=== PATIENT | male | born 1950 | race Caucasian/White ===

== ENCOUNTER 2017-04-16 05:54 | Day surgery (SDC) | payer BC ==
[2017-04-16] MEDS ORDERED: Midazolam HCl 2 mg/2 ml Vial ONE ×2 (06:27→06:51)
[2017-04-16] MEDS ORDERED: Fentanyl 100 MCG/2 ML VIAL ONE ×2 (06:27→09:07)
[2017-04-16 06:31] LABS: #Eosinphils 0.3 thou/uL (0.0-0.7); #Lymphocytes 1.6 thou/uL (1.20-3.40); #Monocytes 0.6 thou/uL (0.11-0.59); #Neutrophils 3.1 thou/uL (1.40-6.50); %Basophils 0.7 % (0.0-1.0); %Eosinophils 4.6 % (0.0-10.0); %Lymphocytes 28.7 % (21.0-51.0); %Monocytes 10.7 % (0.0-10.0); Mean Platelet Volume 6.4 fL (7.4-10.4); Red Blood Cell (RBC) Count 4.34 mill/uL (4.70-6.10); White Blood Cell (WBC) Count 5.6 thou/uL (4.8-10.8)
[2017-04-16] MEDS ORDERED: Bupivacaine/Epinephrine 0.25% 30 ML VIAL ONE (06:44)
[2017-04-16 06:51] LABS: ALT (SGPT) 33 U/L (8-55); AST (SGOT) 23 U/L (5-34); Alkaline Phosphatase 89 U/L (40-150); Anion Gap 12 mmol/L (10-20); BUN (Urea Nitrogen) 13 mg/dL (8.4-25.7); Bilirubin, Total 0.8 mg/dL (0.2-1.2); Calc. Creatinine Clearance 0 mL/min (70-130); Calcium 9.3 mg/dL (7.8-10.44); Carbon Dioxide 28 mmol/L (23-31); Chloride 104 mmol/L (98-107); Estimated GFR-MDRD Greater than 90; Globulin 2.8 g/dL (2.4-3.5); Protein, Total 6.9 g/dL (5.8-8.1)
[2017-04-16] MEDS ORDERED: CEFAZOLIN/Water 2 GM/20 ML SYRINGE ONE (06:51)
--- NOTE | 2017-04-16 09:02 | OP ---
PREOPERATIVE DIAGNOSES: Umbilical hernia and right breast mass. SURGEON: Jamari Morales M.D. PROCEDURE PERFORMED: Umbilical hernia repair with mesh, right breast biopsy. INDICATIONS: A 67-year-old male who presented with an enlarging mass of the right subareolar breast as well as an enlarging umbilical hernia causing discomfort. FINDINGS: He had about 4 x 4 cm of omental fat incarcerated in this umbilical hernia. The actual de fect was only about 1.5 cm. The breast mass turned out to be what appears to be gynecomastia. PROCEDURE IN DETAIL: After informed consent was obtained, the patient was taken to the operating jordy m and given general mask anesthesia, placed in the supine position. Abdomen and chest were prepped a nd draped in the usual fashion. Local anesthesia infiltrated subcutaneously and deep. A subumbilica l incision was performed. The umbilical skin was dissected off the hernia sac. The hernia sac then dissected circumferentially down to the fascia. Hernia sac excised. Due to the large amount of fatt y tissue going through the small hole, I could not get it to reduce. So it was divided between clamp s and tied with a 0 silk stick tie and that residual amount of fatty tissue was able to be reduced le aving about 1.5 cm defect. A 6.4 cm Proceed mesh was inserted intraabdominally. The wings were pull ed up and the mesh was ensured to be flat underneath the fascia. These wings were then sutured to th e fascia with interrupted 0 Ethibond suture. Hemostasis achieved with electrocautery. Umbilical ski n was sutured to the abdominal wall with interrupted 3-0 Vicryl to restore umbilical contour and then the skin closed with interrupted 4-0 Rapide. Steri-Strips applied. Sterile bandage applied. Then local anesthesia infiltrated subcutaneously and deep. A subareolar incision was performed. Subcu di vided sharply. Tissue was left underneath the nipple areola complex so that it had vascularity and t he mass excised sharply. It was marked with a black suture superior, white suture lateral, blue sutu re anterior, sent to pathology for further analysis. Hemostasis was achieved with electrocautery. W ound irrigated and irrigation fluid removed. The subcutaneous reapproximated with interrupted 3-0 Vi cryl. Skin closed with interrupted 4-0 Rapide. Steri-Strips applied. Sterile bandage applied. The patient tolerated the procedure well and transferred to recovery in good condition. Sponge and need le count verified correct x2.
[2017-04-16] MEDS ORDERED: HYDROcodone/Acetaminophen 5/325 mg Tablet ONE (10:23)
[2017-04-16] MEDS ORDERED: Dexamethasone 20 MG/5 ML VIAL ONE (18:14)
[2017-04-16] MEDS ORDERED: diphenhydrAMINE 50 MG/ML VIAL ONE (18:14)
[2017-04-16] MEDS ORDERED: Ondansetron HCl/PF 4 MG/2 ML Vial ONE (18:14)
[2017-04-16] MEDS ORDERED: Lidocaine 1% PF 5 ML VIAL ONE (18:14)
[2017-04-16] MEDS ORDERED: Glycopyrrolate 0.2 MG/ML 5 ML SYRINGE ONE (18:14)
[2017-04-16] MEDS ORDERED: Sterile Water 10 ML VIAL ONE (18:14)
[2017-04-16] MEDS ORDERED: Propofol 200 MG/20 ML VIAL ONE (18:14)
[2017-04-16] MEDS ORDERED: Ketorolac Tromethamine 30 MG/ML VIAL ONE (18:14)
[2017-04-16] MEDS ORDERED: CEFAZOLIN 1 GM VIAL ONE (18:14)
[2017-04-16] MEDS ORDERED: Metoclopramide HCl 10 MG/2 ML VIAL ONE (18:14)
== END 2017-04-16 10:50 | disposition home or self-care (01) ==
LOC: SDC 05:54
PROVIDERS: ATTEND Surgery
PROC: 0HBT0ZX Excision of Right Breast, Open Approach, Diagnostic (ICD-10-PCS; principal; 2017-04-16)
PROC: 0WUF0JZ Supplement Abdominal Wall with Synthetic Substitute, Open Approach (ICD-10-PCS; principal; 2017-04-16)
DX: K42.0 Umbilical hernia with obstruction, without gangrene (principal); N63.10 Unspecified lump in the right breast, unspecified quadrant; E89.2 Postprocedural hypoparathyroidism; M10.9 Gout, unspecified; Z79.82 Long term (current) use of aspirin; Z79.899 Other long term (current) drug therapy; Z98.1 Arthrodesis status; Z96.652 Presence of left artificial knee joint; Z98.890 Other specified postprocedural states
CPT/HCPCS: 36415; 80053; 85025; 88307; 96374; A4216; C1781; J0131; J0690; J1100; J1200; J1885; J2001; J2250; J2405; J2704; J2765; J3010